=== PATIENT | male | born 1955 | race Caucasian/White ===

== ENCOUNTER → 2025-02-22 06:41 | Outpatient (REF) | payer MEDICARE, BC, SELFPAY | LOC: MRI 3T 06:41 | PROVIDERS: ATTENDING PHYSICIAN Orthopaedic Surgery; FAMILY PHYSICIAN Internal Medicine | DX: M25.561 Pain in right knee (principal) | CPT/HCPCS: 73721 ==

== ENCOUNTER → 2025-03-11 12:25 | Outpatient (REF) | payer MEDICARE, BC, SELFPAY | LOC: PAVMRI 12:25 | PROVIDERS: ATTENDING PHYSICIAN Orthopaedic Surgery; FAMILY PHYSICIAN Internal Medicine | DX: M25.551 Pain in right hip (principal) | CPT/HCPCS: 73721 ==